=== PATIENT | male | born 1960 | race Caucasian/White ===

== ENCOUNTER 2018-05-04 09:29 | Inpatient (IN) | payer MEDICAID, OTHER ==
[~2018-05-04] VITALS: Ht 180.3 cm; Wt 88.6 kg
[2018-05-04 10:07] LABS: BASOPHILS % (AUTO) 0.6 % (0-1); EOSINOPHILS # (AUTO) 0.3 X10'3 (0-0.9); EOSINOPHILS % (AUTO) 3.8 % (0-6); HEMATOCRIT 50.4 % (42.0-52.0); HEMOGLOBIN 16.9 g/dl (14.0-17.9); LYMPHOCYTES % (AUTO) 24.6 % (21-51); MEAN CORPUSCULAR HEMOGLOBIN 30.1 PG (27.0-31.0); MEAN CORPUSCULAR HGB CONC 33.5 % (33.0-36.5); MEAN CORPUSCULAR VOLUME 89.9 FL (78-98); MEAN PLATELET VOLUME 9.9 FL (7.4-10.4); MONOCYTES # (AUTO) 0.6 X10'3 (0-0.9); MONOCYTES % (AUTO) 7.8 % (2-12); NEUTROPHILS # (AUTO) 5.1 X10'3 (1.8-7.7); NEUTROPHILS % (AUTO) 63.2 % (42-75); PLATELET COUNT 181 X10'3 (140-440); RED BLOOD COUNT 5.61 X10'6 (4.70-6.10); RED CELL DISTRIBUTION WIDTH 13.6 % (11.5-14.5); WHITE BLOOD COUNT 8.1 X10'3 (4.5-11.0)
[2018-05-04 10:20] LABS: PARTIAL THROMBOPLASTIN TIME 29 SECONDS (22-32); PROTHROMBIN TIME 10.5 SECONDS (9.0-12.0)
[2018-05-04 10:21] LABS: ALANINE AMINOTRANSFERASE 29 U/L (12-78); ALBUMIN 4.1 G/DL (3.4-5.0); ALBUMIN/GLOBULIN RATIO 1.1 (1.1-1.5); ALKALINE PHOSPHATASE 96 IU/L (46-116); ANION GAP 12 (8-16); ASPARTATE AMINO TRANSFERASE 18 U/L (10-37); BILIRUBIN,TOTAL 0.5 MG/DL (0.1-1.0); BLOOD UREA NITROGEN 11 MG/DL (7-18); BUN/CREATININE RATIO 10.9 (5.4-32.0); CALCIUM 9.1 MG/DL (8.5-10.1); CHLORIDE 100 MMOL/L (99-107); CREATININE 1.01 MG/DL (0.60-1.10); GLUCOSE 118 MG/DL (70-104); POTASSIUM 4.2 MMOL/L (3.5-5.1); SODIUM 137 MMOL/L (135-145); TOTAL CARBON DIOXIDE 25.1 MMOL/L (24-32); TOTAL PROTEIN 7.8 G/DL (6.4-8.2); eGFR 76 ML/MIN
[2018-05-04 10:23] LABS: LARGE PLATELETS FEW; PLATELET ESTIMATE NORMAL
[2018-05-04] MEDS ORDERED: enoxaparin 100mg/ml syringe SUBCUT ONE (12:35)
[2018-05-04] MEDS ORDERED: nitroGLYCERIN 0.2mg/hour patch TD ONE (12:35)
[2018-05-04] MEDS ORDERED: aspirin 81mg tab.chew PO ONE (12:35)
--- NOTE | 2018-05-04 12:57 | NUR ---
relieving RN for lunch, Dr Lemus at bedside, pt did amb with steady gait to restroom, no SOB, no chest pain/discomfort with activity,
[2018-05-04] MEDS ORDERED: TIOT18CA3 IH (13:12)
[2018-05-04] MEDS ORDERED: OMEP20TA23 PO (13:12)
[2018-05-04] MEDS ORDERED: ALBU18HF2 IH (13:12)
[2018-05-04] MEDS ORDERED: LISI10TA4 PO (13:12)
[2018-05-04] MEDS ORDERED: GABA-532 PO (13:12)
[2018-05-04] MEDS ORDERED: FLUO40CA PO (13:12)
[2018-05-04] MEDS ORDERED: HYDROcodone/acetaminophen 5mg/325mg tablet PO PRN (13:20)
[2018-05-04] MEDS ORDERED: aminophylline 250mg/10ml inj. IV PRN (13:20)
[2018-05-04] MEDS ORDERED: dextrose 50%-water 50ml dispensing syringe IV PRN (13:20)
[2018-05-04] MEDS ORDERED: acetaminophen 325mg tablet PO PRN ×2 (13:20)
[2018-05-04] MEDS ORDERED: magnesium Cl slow-release 64mg tablet PO PRN (13:20)
[2018-05-04] MEDS ORDERED: potassium Cl 40MEQ/NS 500ml 500 ML IV PRN ×2 (13:20)
[2018-05-04] MEDS ORDERED: morphine 4 MG/ML inj SYRINge IV PRN (13:20)
[2018-05-04] MEDS ORDERED: metoprolol tartrate 1mg/ml inj IV PRN (13:20)
[2018-05-04] MEDS ORDERED: potassium Cl 20 mEq SR tablet PO PRN ×2 (13:20)
[2018-05-04] MEDS ORDERED: magnesium 4gm in 100ml NS 100 ML IV PRN (13:20)
[2018-05-04] MEDS ORDERED: ondansetron/PF 4mg/2ml inj IV PRN (13:20)
[2018-05-04] MEDS ORDERED: nitroGLYCERIN 0.4mg SUBLingual tab SL PRN (13:20)
[2018-05-04] MEDS ORDERED: magnesium 2GM in 50ml NS 50 ML IV PRN (13:20)
[2018-05-04] MEDS ORDERED: mag hydrox/Alum hydrox/simeth 30ml oral suspension PO PRN (13:20)
[2018-05-04] MEDS ORDERED: regadenoson 0.4mg/5ml syringe IV PRN (13:20)
[2018-05-04 13:31] LABS: MAGNESIUM 1.7 MG/DL (1.5-2.4)
[2018-05-04] MEDS: normal saline 1000ml 1,000 ML IV SCH (13:39)
[2018-05-04] MEDS: levoFLOXACIN-Levaquin 500mg/D5 100 ML IV SCH (14:52)
[2018-05-04] MEDS ORDERED: albuterol 2.5 MG/3 ML nebule NEB SCH (15:00)
[2018-05-04] MEDS ORDERED: ipratropium 0.5 MG/2.5ML nebule IH SCH (15:00)
--- NOTE | 2018-05-04 15:12 | NUR ---
Received report from B[employer]ER, patient coming to room 4513O
[2018-05-04] MEDS: ipratropium/albuterol 3ml nebule IH SCH ×2 (16:43→21:00)
[2018-05-04 18:00] VITALS: BP 123/65
--- NOTE | 2018-05-04 18:26 | NUR ---
Received report from Afua DAVIES, pt is awake and alert on RA, requesting more water, in no apparent distress, call light and items of freq use within reach.
--- NOTE | 2018-05-04 18:33 | NUR ---
Problems reprioritized. Patient report given, questions answered & plan of care reviewed with Ayesha DAVIES.
[2018-05-04] MEDS: docusate sod 100mg capsule PO SCH (20:21)
[2018-05-04] MEDS: gabapentin 300mg capsule PO SCH (20:21)
[2018-05-04] MEDS: heparin, porcine 5000 units/ml vial SQ SCH (20:22)
[2018-05-04] MEDS ORDERED: temazepam 15mg capsule PO PRN (21:00)
[2018-05-04 23:00] VITALS: BP 116/52
[2018-05-05] VITALS (12 sets, daily range): BP systolic 133–147; BP diastolic 59–77
[2018-05-05] MEDS: normal saline 1000ml 1,000 ML IV SCH ×2 (00:09→09:34)
[2018-05-05] MEDS: ipratropium/albuterol 3ml nebule IH SCH ×3 (03:04→15:08)
[2018-05-05 06:14] LABS: BASOPHILS % (AUTO) 0.6 % (0-1); EOSINOPHILS # (AUTO) 0.3 X10'3 (0-0.9); HEMATOCRIT 43.9 % (42.0-52.0); HEMOGLOBIN 14.9 g/dl (14.0-17.9); LYMPHOCYTES # (AUTO) 1.6 X10'3 (1.1-4.8); LYMPHOCYTES % (AUTO) 18.7 % (21-51); MEAN CORPUSCULAR HEMOGLOBIN 30.6 PG (27.0-31.0); MEAN CORPUSCULAR VOLUME 90.1 FL (78-98); MEAN PLATELET VOLUME 10.2 FL (7.4-10.4); MONOCYTES # (AUTO) 0.7 X10'3 (0-0.9); MONOCYTES % (AUTO) 8.7 % (2-12); NEUTROPHILS # (AUTO) 5.7 X10'3 (1.8-7.7); PLATELET COUNT 140 X10'3 (140-440); RED BLOOD COUNT 4.88 X10'6 (4.70-6.10); RED CELL DISTRIBUTION WIDTH 13.4 % (11.5-14.5); WHITE BLOOD COUNT 8.3 X10'3 (4.5-11.0)
--- NOTE | 2018-05-05 06:25 | NUR ---
Gave report to Ara DAVIES pt is awake and alert on RA, in no apparent distress.
--- NOTE | 2018-05-05 06:27 | NUR ---
Problems reprioritized. Patient report given, questions answered & plan of care reviewed with []. Addendum: 05/05/18 at 0714 by Ara Britt RN incorrect note above: Patient in room [facility]. I have received report from BART DAVIES and had the opportunity to ask questions and assume patient care.
[2018-05-05 06:29] LABS: ALANINE AMINOTRANSFERASE 24 U/L (12-78); ALBUMIN 3.3 G/DL (3.4-5.0); ALBUMIN/GLOBULIN RATIO 1.1 (1.1-1.5); ALKALINE PHOSPHATASE 77 IU/L (46-116); ANION GAP 9 (8-16); ASPARTATE AMINO TRANSFERASE 14 U/L (10-37); BILIRUBIN,TOTAL 0.5 MG/DL (0.1-1.0); BLOOD UREA NITROGEN 11 MG/DL (7-18); BUN/CREATININE RATIO 11.7 (5.4-32.0); CALCIUM 8.3 MG/DL (8.5-10.1); CHLORIDE 104 MMOL/L (99-107); CHOL/HDL RATIO 5.3 (0.00-4.99); CHOLESTEROL 222 MG/DL (0-200); CREATININE 0.94 MG/DL (0.60-1.10); GLUCOSE 97 MG/DL (70-104); HDL CHOLESTEROL 42 MG/DL (35-60); LDL CHOLESTEROL 158 MG/DL (50-100); MAGNESIUM 1.7 MG/DL (1.5-2.4); SODIUM 139 MMOL/L (135-145); TOTAL CARBON DIOXIDE 25.7 MMOL/L (24-32); TOTAL PROTEIN 6.4 G/DL (6.4-8.2); TRIGLYCERIDES 186 MG/DL (20-135); eGFR 82 ML/MIN
[2018-05-05] MEDS ORDERED: pantoprazole 40mg Tablet.DR PO SCH (07:30)
[2018-05-05 07:31] LABS: LARGE PLATELETS FEW; PLATELET ESTIMATE DECREASED
[2018-05-05] MEDS ORDERED: lisinopril 10 MG tablet PO SCH (08:00)
[2018-05-05] MEDS ORDERED: K and/or MAG REPLACEMENT MC SCH (08:00)
[2018-05-05] MEDS ORDERED: FLUoxetine 20mg capsule PO SCH (08:00)
[2018-05-05] MEDS: docusate sod 100mg capsule PO SCH (09:26)
[2018-05-05] MEDS: gabapentin 300mg capsule PO SCH ×2 (09:27→13:29)
[2018-05-05] MEDS: heparin, porcine 5000 units/ml vial SQ SCH (09:28)
[2018-05-05] MEDS: levoFLOXACIN-Levaquin 500mg/D5 100 ML IV SCH (09:34)
--- NOTE | 2018-05-05 09:45 | NUR ---
Patient escorted down to [facility] for lexiscan.
[2018-05-05] MEDS ORDERED: regadenoson 0.4mg/5ml syringe IV ONE (09:59)
[2018-05-05] MEDS ORDERED: aminophylline inj. 10 ML IV ONE (09:59)
--- NOTE | 2018-05-05 11:15 | NUR ---
Patient arrived back from [facility] To order lunch tray.
--- NOTE | 2018-05-05 15:52 | NUR ---
madelaine [id number] Stress test NEGATIVE, patient wishes to see you." Paged , awaiting on response.
[2018-05-05] MEDS ORDERED: ATOR40TA PO (16:50)
--- NOTE | 2018-05-05 17:50 | NUR ---
Patient discharged without event at this time by ambulation via [facility] escort, discussed discharge education with patient, verbalized understanding. Dc'd tele and IV at this time, cathlon intact. Patient eager to go home. Escorted patient out to meet ride.
--- NOTE | 2018-05-05 18:18 | NUR ---
Called medication into [facility] in [place] per patient preference.
[2018-05-06] MEDS ORDERED: levoFLOXACIN 500mg tablet PO SCH (11:00)
== END 2018-05-05 17:30 | disposition home or self-care (01) | DRG 145 ==
LOC: ER 09:29 → ED HOLD 13:20 → PCU 3S 15:20
PROVIDERS: ADMIT Internal Medicine; ATTEND Family Medicine
PROC: 4A02XM4 Measurement of Cardiac Total Activity, External Approach (ICD-10-PCS; principal; 2018-05-05)
PROC: 3E033HZ Introduction of Radioactive Substance into Peripheral Vein, Percutaneous Approach (ICD-10-PCS; 2018-05-05)
DX: R09.1 Pleurisy (principal); E78.5 Hyperlipidemia, unspecified; F10.10 Alcohol abuse, uncomplicated; F17.210 Nicotine dependence, cigarettes, uncomplicated; F32.9 Major depressive disorder, single episode, unspecified; F41.9 Anxiety disorder, unspecified; I10 Essential (primary) hypertension; J44.9 Chronic obstructive pulmonary disease, unspecified; Z72.89 Other problems related to lifestyle; Z88.5 Allergy status to narcotic agent
CPT/HCPCS: 36415; 71045; 78452; 80053; 80061; 82948; 83735; 83880; 84484; 85025; 85610; 85730; 87070; 93005; 93017; 93306; 94640; 94760; 96372; 99285; A9500; G0378; J0280; J1644; J1650; J1956; J7030

== ENCOUNTER 2021-03-10 08:56 | Emergency (ER) | payer MEDICAID, MEDICARE ==
[~2021-03-10] VITALS: Ht 175.3 cm; Wt 81.8 kg
[~2021-03-10 08:56] MED LIST: ALBU18HF2 IH; FLUO40CA PO; GABA-532 PO; LISI10TA27 PO; OMEP20TA23 PO; TIOT18CA3 IH
[2021-03-10 09:07] VITALS: BP 161/77
[2021-03-10 09:32] LABS: BASOPHILS # (AUTO) 0.1 X10'3 (0-0.2); EOSINOPHILS # (AUTO) 0.3 X10'3 (0-0.9); EOSINOPHILS % (AUTO) 4.6 % (0-6); MEAN CORPUSCULAR HEMOGLOBIN 28.8 PG (27.0-31.0); MONOCYTES # (AUTO) 0.7 X10'3 (0-0.9)
[2021-03-10 09:34] LABS: BASOPHILS % (AUTO) 0.8 % (0-1); HEMATOCRIT 47.2 % (42.0-52.0); HEMOGLOBIN 15.9 g/dl (14.0-17.9); LYMPHOCYTES # (AUTO) 2.1 X10'3 (1.1-4.8); LYMPHOCYTES % (AUTO) 29.4 % (21-51); MEAN CORPUSCULAR HGB CONC 33.7 g/dL (33.0-36.5); MEAN CORPUSCULAR VOLUME 85.3 FL (78-98); MEAN PLATELET VOLUME 9.7 FL (7.4-10.4); MONOCYTES % (AUTO) 9.7 % (2-12); NEUTROPHILS % (AUTO) 55.5 % (42-75); RED BLOOD COUNT 5.53 X10'6 (4.70-6.10); RED CELL DISTRIBUTION WIDTH 14.1 % (11.5-14.5); WHITE BLOOD COUNT 7.3 X10'3 (4.5-11.0)
[2021-03-10 09:43] LABS: ALANINE AMINOTRANSFERASE 16 U/L (12-78); ALBUMIN 3.7 G/DL (3.4-5.0); ALBUMIN/GLOBULIN RATIO 1.3 (1.1-1.5); ALKALINE PHOSPHATASE 72 IU/L (46-116); ASPARTATE AMINO TRANSFERASE 11 U/L (10-37); BILIRUBIN,TOTAL 0.5 MG/DL (0.1-1.0); BLOOD UREA NITROGEN 9 MG/DL (7-18); BUN/CREATININE RATIO 9.1 (5.4-32.0); CALCIUM 8.4 MG/DL (8.5-10.1); CHLORIDE 104 MMOL/L (99-107); CREATININE 0.99 MG/DL (0.60-1.10); GLUCOSE 119 MG/DL (70-104); POTASSIUM 4.6 MMOL/L (3.5-5.1); TOTAL CARBON DIOXIDE 28.9 MMOL/L (24-32); TOTAL PROTEIN 6.6 G/DL (6.4-8.2); eGFR 77 ML/MIN
[2021-03-10 09:57] LABS: ANION GAP 7 (8-16); SODIUM 140 MMOL/L (135-145)
[2021-03-10 10:14] LABS: PLATELET COUNT 142 X10'3 (140-440)
[2021-03-10 10:17] LABS: PLATELET ESTIMATE NORMAL
[2021-03-10 10:18] LABS: ANISOCYTOSIS FEW; GIANT PLATELET FEW
[2021-03-10 10:19] LABS: LARGE PLATELETS FEW
[2021-03-10] MEDS ORDERED: PRED10TA23 PO (11:41)
== END 2021-03-10 12:07 | disposition home or self-care (01) ==
LOC: ER 08:56
DX: R07.89 Other chest pain (principal); M54.2 Cervicalgia; M25.511 Pain in right shoulder; R20.0 Anesthesia of skin; R03.0 Elevated blood-pressure reading, without diagnosis of hypertension; J44.9 Chronic obstructive pulmonary disease, unspecified; Z72.89 Other problems related to lifestyle; Z88.8 Allergy status to other drugs, medicaments and biological substances; Z79.899 Other long term (current) drug therapy
CPT/HCPCS: 36415; 71045; 80053; 83880; 84484; 85008; 85025; 93005; 99285